=== PATIENT | female | born 1980 | race Caucasian/White ===

== ENCOUNTER 2019-05-17 13:47 | Emergency (ER) | payer BC ==
--- NOTE | 2019-05-17 14:06 | EDM.PDOC ---
ED HPI GENERAL MEDICAL PROBLEM - General Chief Complaint: ENT Problem Stated Complaint: COUGH Time Seen by Provider: 05/17/19 13:50 Source of Information: Reports: Patient History Limitations: Reports: No Limitations - History of Present Illness INITIAL COMMENTS - FREE TEXT/NARRATIVE: HISTORY OF PRESENT ILLNESS: Patient is a 39-year-old female who complains of fever, cough, nasal congestion and sneezing since yesterday. Reports generalized malaise and myalgias. Denies any neck stiffness or rash. No chest pain dyspnea or wheezing. No abdominal pain, vomiting or diarrhea. No urinary symptoms. No recent international travel. Did not receive the flu vaccination this year. Patient states she needs a work note. REVIEW OF SYSTEMS: Other than the symptoms associated with the present events, the following is reported with regard to recent health: General: (+) fever. HENT: (+) congestion. Respiratory: (+) dry cough. Cardiovascular: (-) chest pain. GI: (-) abdominal pain. : (-) urinary complaints. Musculoskeletal: (-) other aches or pains. Endocrine: (-) generalized weakness. Neurological: (-) localized weakness. Skin: (-) rash PAST MEDICAL HISTORY: reviewed as per nursing notes SOCIAL HISTORY: reviewed as per nursing notes, MEDICATIONS: Per nurse's note ALLERGIES: Per nurse's note, reviewed by me PHYSICAL EXAMINATION: GENERALIZED APPEARANCE: well developed, well nourished in no distress VITAL SIGNS: Per nurse's note, reviewed by me SKIN: Warm, dry; (-) cyanosis; (-) rash. HEAD: (-) scalp swelling, (-) tenderness. EYES: (-) conjunctival pallor, (-) scleral icterus. ENMT: (-) stridor; mucous membranes moist. No Pharyngeal erythema. Uvula midline NECK: (-) tenderness, (-) stiffness, CHEST AND RESPIRATORY: (-) rales, (-) rhonchi, (-) wheezes; breath sounds equal bilaterally. HEART AND CARDIOVASCULAR: (-) irregularity; (-) murmur, (-) gallop. ABDOMEN AND GI: Soft; (-) tenderness, (-) guarding, (-) rebound, (-) palpable masses, EXTREMITIES: (-) deformity, (-) edema. NEURO AND PSYCH: Alert. Cranial nerves grossly intact; strength symmetric. gait steady DIAGNOSTICS: Influenza neg EMERGENCY DEPARTMENT COURSE AND TREATMENT: Patient's condition remained stable during Emergency Department evaluation. Based on my history, physical exam, and diagnostic evaluation, the patient appears to have symptoms consistent with URI/viral illness. There is a normal heart rate, normal oxygen saturation, a normal respiratory pattern and non-diagnostic exam. The patient appeared to be in no distress, appeared well-hydrated and was ambulating in the ED without difficulty. Discharge precautions were given with instructions to return if difficulty breathing, not tolerating oral food or fluids, any respiratory distress, or new symptoms. I encouraged follow-up with the primary care physician in 1-2 days for repeat exam. PLAN AND FOLLOW-UP: Patient received written and verbal instructions regarding this condition. Return to ED immediately with any new or worsening symptoms. Follow up to be arranged by patient with pcp in 1-2 days for further evaluation. Given discharge precautions. Patient expressed verbal understanding. headache Pain Score (Numeric/FACES): 4 - Related Data Allergies Allergy/AdvReac Type Severity Reaction Status Date / Time No Known Allergies Allergy Verified 05/17/19 14:01 Home Meds: Home Meds . [No Known Home Meds] 05/17/19 [History] ED ROS GENERAL - Review of Systems Review Of Systems: See Below (see dictation) ED EXAM, GENERAL - Physical Exam Exam: See Below (see dictation) Course - Vital Signs Last Recorded V/S: Last Vital Signs Temp 97.1 F 05/17/19 14:02 Pulse 71 05/17/19 15:00 Resp 18 05/17/19 15:00 BP 148/92 H 05/17/19 15:00 Pulse Ox 98 05/17/19 15:00 Departure - Departure Time of Disposition: 14:38 Disposition: Home, Self-Care 01 Condition: Good Clinical Impression: Upper respiratory infection - Discharge Information *PRESCRIPTION DRUG MONITORING PROGRAM REVIEWED*: Not Applicable *COPY OF PRESCRIPTION DRUG MONITORING REPORT IN PATIENT SONA: Not Applicable Instructions: Upper Respiratory Infection, Adult, [id number] Referrals: Alli Doherty [Ordering Only Provider] - 2 Days Forms: ED Department Discharge Additional Instructions: The following information is given to patients seen in the emergency department who are being discharged to home. This information is to outline your options for follow-up care. We provide all patients seen in our emergency department with a follow-up referral. The need for follow-up, as well as the timing and circumstances, are variable depending upon the specifics of your emergency department visit. If you don't have a primary care physician on staff, we will provide you with a referral. We always advise you to contact your personal physician following an emergency department visit to inform them of the circumstance of the visit and for follow-up with them and/or the need for any referrals to a consulting specialist. The emergency department will also refer you to a specialist when appropriate. This referral assures that you have the opportunity for follow-up care with a specialist. All of these measure are taken in an effort to provide you with optimal care, which includes your follow-up. Under all circumstances we always encourage you to contact your private physician who remains a resource for coordinating your care. When calling for follow-up care, please make the office aware that this follow-up is from your recent emergency room visit. If for any reason you are refused follow-up, please contact the [facility] Emergency Department at and asked to speak to the emergency department charge nurse. Sepsis Event Note - Focused Exam Vital Signs: Vital Signs Temp Pulse Resp BP Pulse Ox 05/17/19 15:00 71 18 148/92 H 98 05/17/19 14:02 97.1 F 100 18 153/95 H 99 Date Exam was Performed: 05/17/19 Time Exam was Performed: 15:09
== END 2019-05-17 15:06 | disposition home or self-care (01) ==
LOC: MW.ED 13:47
DX: J06.9 Acute upper respiratory infection, unspecified (principal)
CPT/HCPCS: 87804; 99283

== ENCOUNTER 2019-08-02 13:26 | Emergency (ER) | payer BC, OTHER ==
[2019-08-02] MEDS ORDERED: Benzonatate 100 MG Cap PO ONE (14:21)
--- NOTE | 2019-08-02 14:26 | EDM.PDOC ---
ED HPI GENERAL MEDICAL PROBLEM - General Chief Complaint: Respiratory Problem Stated Complaint: COUGHING/SOB Time Seen by Provider: 08/02/19 14:21 Source of Information: Reports: Patient History Limitations: Reports: No Limitations - History of Present Illness INITIAL COMMENTS - FREE TEXT/NARRATIVE: This 39-year-old female presents to the emergency room with a chief complaint of 48 hours of coughing and shortness of breath. Patient states she has had a persistent cough/nonproductive and has been short of breath. Patient denies any history of travel , exposure to patients with known disease. Has only been out to [facility]. Duration: Day(s): (2) Quality: Reports: Sharp, Stabbing Severity: Moderate Improves with: Reports: None Worsens with: Reports: None Context: Denies: Exercise, Lifting, Sick Contact, Trauma Associated Symptoms: Reports: Cough, Shortness of Breath. Denies: cough w sputum, Fever/Chills, Nausea/Vomiting, Rash, Seizure right upper back Pain Score (Numeric/FACES): 5 - Related Data Allergies Allergy/AdvReac Type Severity Reaction Status Date / Time No Known Allergies Allergy Verified 08/02/19 13:36 Home Meds: Home Meds QUEtiapine Fumarate [Seroquel] 400 mg PO DAILY 08/02/19 [History] clonazePAM [Clonazepam] 1 mg PO TID 08/02/19 [History] Past Medical History Genitourinary History: Reports: Renal Calculus - Infectious Disease History Infectious Disease History: Reports: Chicken Pox - Past Surgical History GI Surgical History: Reports: Cholecystectomy Social & Family History - Family History Family Medical History: Noncontributory - Tobacco Use Smoking Status *Q: Current Every Day Smoker Years of Tobacco use: 18 Packs/Tins Daily: 0.2 - Recreational Drug Use Recreational Drug Use: No ED ROS GENERAL - Review of Systems Review Of Systems: See Below Constitutional: Reports: No Symptoms HEENT: Reports: No Symptoms Respiratory: Reports: Shortness of Breath, Cough Cardiovascular: Reports: No Symptoms Endocrine: Reports: No Symptoms GI/Abdominal: Reports: No Symptoms : Reports: No Symptoms Musculoskeletal: Reports: No Symptoms Skin: Reports: No Symptoms Neurological: Reports: No Symptoms Psychiatric: Reports: No Symptoms Hematologic/Lymphatic: Reports: No Symptoms Immunologic: Reports: No Symptoms ED EXAM, GENERAL - Physical Exam Exam: See Below Exam Limited By: No Limitations General Appearance: Alert, WD/WN, Mild Distress Eye Exam: Bilateral Eye: Normal Fundi, Normal Inspection Ears: Normal External Exam, Normal Canal, Normal TMs Ear Exam: Bilateral Ear: Auricle Normal, Canal Normal Nose: Normal Inspection, Normal Mucosa, No Blood Throat/Mouth: Normal Inspection, Normal Lips, Normal Teeth, Normal Oropharynx, Normal Voice Head: Atraumatic, Normocephalic Neck: Normal Inspection, Supple, Non-Tender Respiratory/Chest: No Respiratory Distress, Lungs Clear, Normal Breath Sounds, No Accessory Muscle Use, Chest Non-Tender Cardiovascular: Normal Peripheral Pulses, Regular Rate, Rhythm, No Edema, No JVD , No Murmur GI/Abdominal: Normal Bowel Sounds, Soft, Non-Tender, No Organomegaly, No Distention, No Abnormal Bruit, No Mass, Pelvis Stable (Female) Exam: Deferred Rectal (Female) Exam: Deferred Back Exam: Normal Inspection, Full Range of Motion Extremities: Normal Inspection, Normal Range of Motion, No Pedal Edema, Normal Capillary Refill Neurological: Alert, Oriented, CN II-XII Intact, Normal Cognition, Normal Reflexes, No Motor/Sensory Deficits Psychiatric: Normal Affect, Normal Mood Skin Exam: Warm, Normal Color, No Rash Lymphatic: No Adenopathy Course - Vital Signs Text/Narrative:: 39 -year-old female presenting to the emergency room with coughing, fever, shortness of breath. Patient states she has been in [place] since December does not know if she has been exposed to anybody. Patient's labs are normal patient's chest x-ray is normal. Directed to wait for results of test within the next 2 days. Patient will be given allergy medicine for possible allergic reaction. Last Recorded V/S: Last Vital Signs Temp 96.7 F L 08/02/19 13:37 Pulse 106 H 08/02/19 15:14 Resp 20 08/02/19 15:14 BP 116/76 08/02/19 15:14 Pulse Ox 100 08/02/19 15:14 - Orders/Labs/Meds Orders: Active Orders 24 hr Category Date Time Status CORONAVIRUS COVID-19 PCR [facility] Stat Lab 08/02/19 15:15 Received diphenhydrAMINE [Benadryl] Med 08/02/19 16:10 Once 50 mg PO ONETIME ONE Isolation [COMM] Routine Oth 08/02/19 15:31 Active Meds: Medications Discontinued Medications Generic Name Dose Route Start Last Admin Trade Name Suze PRN Reason Stop Dose Admin Benzonatate 200 mg 08/02/19 14:21 08/02/19 15:13 Tessalon Perles PO 08/02/19 14:22 200 mg ONETIME ONE Administration Departure - Departure Time of Disposition: 16:11 Disposition: Home, Self-Care 01 Condition: Good Clinical Impression: Viral bronchitis - Discharge Information Instructions: Upper Respiratory Infection, Adult, [id number] Referrals: PCP,None [Primary Care Provider] - Forms: ED Department Discharge Additional Instructions: 1. Is to stay home quarantine for 48 hours and await results of test from health department. Patient to take medications for coughing patient to return for severe shortness of breath Sepsis Event Note - Evaluation Sepsis Screening Result: No Definite Risk - Focused Exam Vital Signs: Vital Signs Temp Pulse Resp BP Pulse Ox 08/02/19 15:14 106 H 20 116/76 100 08/02/19 13:37 96.7 F L 110 H 20 116/56 L 97 Date Exam was Performed: 08/02/19 Time Exam was Performed: 16:10 - My Orders Last 24 Hours: My Active Orders 08/02/19 15:15 CORONAVIRUS COVID-19 PCR [facility] Stat 08/02/19 15:31 Isolation [COMM] Routine 08/02/19 16:10 diphenhydrAMINE [Benadryl] 50 mg PO ONETIME ONE - Assessment/Plan Last 24 Hours: My Active Orders 08/02/19 15:15 CORONAVIRUS COVID-19 PCR PHL Stat 08/02/19 15:31 Isolation [COMM] Routine 08/02/19 16:10 diphenhydrAMINE [Benadryl] 50 mg PO ONETIME ONE
--- NOTE | 2019-08-02 15:00 | CR ---
Chest: Portable view of the chest was obtained. Comparison: No prior chest imaging is available. Heart size and mediastinum are within normal limits. Lungs are clear with no acute parenchymal change. Bony structures are grossly intact. Impression: 1. Nothing acute is appreciated on portable chest x-ray. Diagnostic code #1 This report was dictated in MDT
[2019-08-02] MEDS ORDERED: diphenhydrAMINE 50 MG Cap PO ONE (16:10)
== END 2019-08-02 16:31 | disposition home or self-care (01) ==
LOC: MW.ED 13:26
DX: J20.8 Acute bronchitis due to other specified organisms (principal); Z79.899 Other long term (current) drug therapy
CPT/HCPCS: 71045; 87635; 87804; 99285; A9270; 99282; U0002